=== PATIENT | male | born 1955 | race Two or more races ===

== ENCOUNTER 2020-12-31 22:43 | Emergency (ER) | payer OTHER ==
[~2020-12-31] VITALS: Ht 170.2 cm; Wt 83.9 kg
[2020-12-31] MEDS ORDERED: TDAP [DIPH/PERTUSSIS/TET] 0.5 ML VIAL IM ONE ×2 (23:00→23:01)
--- NOTE | 2021-01-01 02:34 | NUR ---
Patient is taken home by .
--- NOTE | 2021-01-01 02:34 | NUR ---
Patient discharged to home in stable condition. Written and verbal after care instructions given. Patient verbalizes understanding of instruction.
[2021-01-01 02:37] VITALS: BP 132/82
== END 2021-01-01 02:38 | disposition home or self-care (01) ==
LOC: ER 22:45
DX: S01.311A Laceration without foreign body of right ear, initial encounter (principal); S09.8XXA Other specified injuries of head, initial encounter; F10.129 Alcohol abuse with intoxication, unspecified; W19.XXXA Unspecified fall, initial encounter; Y93.89 Activity, other specified; Y92.89 Other specified places as the place of occurrence of the external cause; Y99.8 Other external cause status; Y90.9 Presence of alcohol in blood, level not specified
CPT/HCPCS: 12011; 70450; 72125; 82962; 90471; 90715; 99285; L0172 ×2